=== PATIENT | male | born 1970 | race Caucasian/White ===

== ENCOUNTER 2020-01-29 12:55 | Emergency (ER) | payer SELFPAY ==
--- NOTE | 2020-01-29 13:18 | ER Document Report ---
ED Medical Screen (RME) - General Chief Complaint: Altered Mental Status Stated Complaint: WEAKNESS Time Seen by Provider: 01/29/20 13:07 Mode of Arrival: Ambulatory Information source: Patient Notes: 49-year-old male presented to ED for loss of memory intermittently x1 month altered mental status intermittently for over a month. States that he has had dark urine at times yellow eyes at times. Daughter states she saw him Saturday when he was talking okay but sometimes he talks on the phone he makes no sense. He is alert and oriented answering questions appropriate at this time. He also has generalized weakness. I have greeted and performed a rapid initial assessment of this patient. A comprehensive ED assessment and evaluation of the patient, analysis of test results and completion of medical decision making process will be conducted by an additional ED providers. - Related Data Allergies/Adverse Reactions: No Known Allergies Allergy (Verified 01/29/20 13:05) Past Medical History - Social History Frequency of alcohol use: Social Drug Abuse: Methamphetamine
--- NOTE | 2020-01-29 14:16 | RADIOLOGY REPORT (SQ) ---
EXAM DESCRIPTION: CT HEAD WITHOUT IMAGES COMPLETED DATE/TIME: 01/29/2020 2:03 pm REASON FOR STUDY: Memory loss altered mental status COMPARISON: None. TECHNIQUE: Axial images acquired through the brain without intravenous contrast. Images reviewed wi th bone, brain and subdural windows. Additional sagittal and coronal reconstructions were generated. Images stored on PACS. All CT scanners at this facility use dose modulation, iterative reconstruction, and/or weight based d osing when appropriate to reduce radiation dose to as low as reasonably achievable (ALARA). [facility]: Dose Right [facility]: CareDose [facility]: Dose Right [facility]: Teradose 4D [facility]: Prismatic RADIATION DOSE: CT Rad equipment meets quality standard of care and radiation dose reduction techniq ues were employed. CTDIvol: 53.2 mGy. DLP: 1017 mGy-cm. mGy. LIMITATIONS: None. FINDINGS: VENTRICLES: Normal size and contour. CEREBRUM: No masses. No hemorrhage. No midline shift. No evidence for acute infarction. Normal gra y/white matter differentiation. No areas of low density in the white matter. CEREBELLUM: No masses. No hemorrhage. No alteration of density. No evidence for acute infarction. EXTRAAXIAL SPACES: No fluid collections. No masses. ORBITS AND GLOBE: No intra- or extraconal masses. Normal contour of globe without masses. CALVARIUM: No fracture. PARANASAL SINUSES: No fluid or mucosal thickening. SOFT TISSUES: No mass or hematoma. OTHER: No other significant finding. IMPRESSION: NORMAL BRAIN CT WITHOUT CONTRAST. EVIDENCE OF ACUTE STROKE: NO. COMMENT: Quality ID # [id number]: Final reports with documentation of one or more dose reduction techniques (e.g., Automated exposure control, adjustment of the mA and/or kV according to patient size, use of iterative reconstruction technique) TECHNICAL DOCUMENTATION: JOB ID: [id number] 2010 [employer]- All Rights Reserved Reading location - IP/workstation name: [email or web address]
[2020-01-29 14:32] LABS: ABSOLUTE BASOPHILS # (AUTO) 0.1 10^3/uL (0.0-0.2); ABSOLUTE EOSINOPHILS # (AUTO) 0.5 10^3/uL (0.0-0.6); ABSOLUTE LYMPHOCYTES (AUTO) 2.5 10^3/uL (0.5-4.7); ABSOLUTE MONOCYTES (AUTO) 1.5 10^3/uL (0.1-1.4); ABSOLUTE NEUT (AUTO) 5.5 10^3/uL (1.7-8.2); EOSINOPHILS % (AUTO) 4.9 % (0-6); HEMATOCRIT 46.6 % (37.9-51.0); HEMOGLOBIN 16.4 g/dL (13.5-17.0); LYMPHOCYTES % (AUTO) 24.7 % (13-45); MEAN CORPUSCULAR HEMOGLOBIN 31.1 pg (27.0-33.4); MEAN CORPUSCULAR HGB CONC 35.3 g/dL (32.0-36.0); MEAN CORPUSCULAR VOLUME 88 fl (80-97); MONOCYTES % (AUTO) 14.6 % (3-13); PLATELET COUNT 280 10^3/uL (150-450); RED BLOOD COUNT 5.29 10^6/uL (4.35-5.55); RED CELL DISTRIBUTION WIDTH 17.5 % (11.5-14.0); SEGMENTED NEUTROPHILS % (AUTO) 54.8 % (42-78); TOTAL CELLS COUNTED % (AUTO) 100 %
[2020-01-29 14:36] LABS: INTERNATIONAL RATION (INR) 0.97; PROTHROMBIN TIME 13.1 SEC (11.4-15.4)
[2020-01-29 14:37] LABS: PARTIAL THROMBOPLASTIN TIME 34.6 SEC (23.5-35.8)
--- NOTE | 2020-01-29 14:49 | RADIOLOGY REPORT (SQ) ---
EXAM DESCRIPTION: CHEST SINGLE VIEW IMAGES COMPLETED DATE/TIME: 01/29/2020 2:13 pm REASON FOR STUDY: Short of breath COMPARISON: None. EXAM PARAMETERS: NUMBER OF VIEWS: One view. TECHNIQUE: Single frontal radiographic view of the chest acquired. RADIATION DOSE: NA LIMITATIONS: None. FINDINGS: LUNGS AND PLEURA: No opacities, masses or pneumothorax. No pleural effusion. MEDIASTINUM AND HILAR STRUCTURES: No masses. Contour normal. HEART AND VASCULAR STRUCTURES: Heart normal in size. Normal vasculature. BONES: No acute findings. HARDWARE: None in the chest. OTHER: No other significant finding. IMPRESSION: NO ACUTE RADIOGRAPHIC FINDING IN THE CHEST. TECHNICAL DOCUMENTATION: JOB ID: [id number] [place]-72 2010 [employer]- All Rights Reserved Reading location - IP/workstation name: [email or web address]
[2020-01-29 14:55] LABS: ALKALINE PHOSPHATASE 160 U/L (38-126); ANION GAP 7 (5-19); ASPARTATE AMINO TRANSFERASE 145 U/L (17-59); BILIRUBIN,DIRECT 1.3 mg/dL (0.0-0.4); BILIRUBIN,TOTAL 1.9 mg/dL (0.2-1.3); BLOOD UREA NITROGEN 10 mg/dL (7-20); CALCIUM 9.3 mg/dL (8.4-10.2); CARBON DIOXIDE 32 mmol/L (22-30); CHLORIDE 100 mmol/L (98-107); CREATINE KINASE 69 U/L (55-170); GLUCOSE 90 mg/dL (75-110); POTASSIUM 4.3 mmol/L (3.6-5.0); TOTAL PROTEIN 7.3 g/dL (6.3-8.2)
[2020-01-29 14:56] LABS: ACETAMINOPHEN < 10 ug/mL (10-30); ALCOHOL < 10 mg/dL (NONE DETECTED)
[2020-01-29 16:43] LABS: APPEARANCE,URINE SLIGHTLY-CLOUDY; BILIRUBIN,URINE SMALL (NEGATIVE); COLOR,URINE AMBER; GLUCOSE, URINE NEGATIVE (NEGATIVE); KETONES,URINE NEGATIVE (NEGATIVE); LEUKOCYTE ESTERASE,URINE NEGATIVE (NEGATIVE); NITRITE,URINE NEGATIVE (NEGATIVE); PROTEIN,URINE 100 mg/dL (NEGATIVE); URINE SPECIFIC GRAVITY 1.033
[2020-01-29 16:58] LABS: URINE BARBITURATES SCREEN NEGATIVE; URINE BENZODIAZEPINES SCREEN NEGATIVE; URINE COCAINE SCREEN NEGATIVE; URINE MARIJUANA (THC) SCREEN NEGATIVE; URINE METHADONE SCREEN NEGATIVE; URINE PHENCYCLIDINE SCREEN NEGATIVE
--- NOTE | 2020-01-29 18:22 | ER Document Report ---
ED General - General Chief Complaint: Altered Mental Status Stated Complaint: WEAKNESS Time Seen by Provider: 01/29/20 13:07 Primary Care Provider: DON LUIS [Primary Care Provider] - Follow up as needed Mode of Arrival: Ambulatory Notes: Patient is a 49-year-old white male with no known past medical history who presents to the emergency department with a chief complaint of wanting evaluat ed. He reports his daughter made him come. They report that recently he has been using methamphetamine because he turned 49 and started having lower energy levels. Patient states that he finds it hard to find the motivation to get up and go to work. He states that he does not have a primary care doctor and resulted to using methamphetamines for motivation. He states he does not sleep every night due to the methamphetamine use. He admits to smoking and injecting methamphetamines. States that he used to drink very heavily but only occasionally drinks alcohol now. Denies any other drug use. His daughter was concerned that more could be going on and decided to bring him for evaluation. Daughter also reports that from time to time when she talks to him he seems to not make much sense. She states that she is noticed in the past yellowing of the eyes. States that she looked the symptoms up on the Internet and was concerned. They deny any other pain, complaints or concerns at this time. - Related Data Allergies/Adverse Reactions: No Known Allergies Allergy (Verified 01/29/20 13:05) Past Medical History - General Information source: Patient - Social History Smoking Status: Current Every Day Smoker Frequency of alcohol use: Social Drug Abuse: Methamphetamine Family History: None Review of Systems - Review of Systems Constitutional: denies: Fever EENT: denies: Nose pain Cardiovascular: denies: Dyspnea Respiratory: denies: Short of breath Gastrointestinal: denies: Vomiting Genitourinary: denies: Frequency Male Genitourinary: denies: Testicular pain Musculoskeletal: denies: Muscle stiffness Skin: denies: Lesions Hematologic/Lymphatic: denies: Easy bruising Neurological/Psychological: Weakness Physical Exam - Vital signs Vitals: Temp Pulse Resp BP Pulse Ox 98.7 F 78 18 125/78 99 01/29/20 13:14 01/29/20 13:14 01/29/20 13:14 01/29/20 13:14 01/29/20 13:14 - General General appearance: Appears well, Alert In distress: None Notes: Pressured speech - HEENT Head: Normocephalic, Atraumatic Eyes: Normal Conjunctiva: No: Icteric, Injected Extraocular movements intact: Yes Eyelashes: Normal Pupils: PERRL Mouth/Lips: Normal Mucous membranes: Moist Pharynx: Normal Neck: Normal, Supple - Respiratory Respiratory status: No respiratory distress Chest status: Nontender Breath sounds: Normal Chest palpation: Normal - Cardiovascular Rhythm: Regular Heart sounds: Normal auscultation - Abdominal Inspection: Normal Distension: No distension Bowel sounds: Normal Tenderness: Nontender Organomegaly: No organomegaly Notes: No stigmata of liver disease. No palpable hepatomegaly. No right upper quadrant tenderness. - Back Back: No: CVA tenderness - Extremities General upper extremity: Normal inspection, Nontender, Normal color, Normal ROM, Normal temperature General lower extremity: Normal inspection, Nontender, Normal color, Normal ROM, Normal temperature, Normal weight bearing. No: Angelic's sign - Neurological Neuro grossly intact: Yes Cognition: Normal Orientation: AAOx4 - Psychological Associated symptoms: Restlessness - Skin Skin Temperature: Warm Skin Moisture: Dry Skin Color: Normal. negative: Jaundiced Course - Re-evaluation Re-evalutation: 01/29/20 18:23 Patient has a pretty benign exam. His work-up reveals obvious transaminitis and elevated bilirubin. His ammonia was in the normal range. He is positive for methamphetamines. He appears as if he is currently under the influence of methamphetamines with his movements and pressured speech. He has no evidence of jaundice or icterus. Benign abdominal exam. No fevers. He is not having any nausea or vomiting or diarrhea. The daughter does add that he is had some occasional dark urine. His urine today is tank in color with some bilirubin. Consistent with chronic liver disease from alcohol and drugs. Recommended the patient see a electronic warfare officer/nitric acid plant operator for further care and management. Advised financially they may not be able to do so and we recommended they start at the community care clinic for further outpatient laboratory testing and care. He will be referred for both. I discussed cessation of alcohol and drugs. We discussed dietary changes and exercise. Encouraged to push clear fluids. Advised they return here any ER immediately with any new, persistent or worsening symptoms. He and his daughter verbalized understood and agreed. 01/29/20 18:23 01/29/20 18:24 - Vital Signs Vital signs: Temp Pulse Resp BP Pulse Ox 98.7 F 78 18 125/78 99 01/29/20 13:14 01/29/20 17:22 01/29/20 17:22 01/29/20 17:22 01/29/20 17:22 - Laboratory Result Diagrams: 01/29/20 14:05 01/29/20 14:05 Laboratory results interpreted by me: 01/29/20 01/29/20 01/29/20 14:05 14:05 14:05 RDW 17.5 H [place] % (Auto) 14.6 H Absolute Monos (auto) 1.5 H Carbon Dioxide 32 H Total Bilirubin 1.9 H Direct Bilirubin 1.3 H AST 145 H ALT 271 H Alkaline Phosphatase 160 H Ammonia < 8.7 L Urine Protein Urine Bilirubin Urine Urobilinogen Acetaminophen < 10 L 01/29/20 16:32 RDW [place] % (Auto) Absolute Monos (auto) Carbon Dioxide Total Bilirubin Direct Bilirubin AST ALT Alkaline Phosphatase Ammonia Urine Protein 100 H Urine Bilirubin SMALL H Urine Urobilinogen 4.0 H Acetaminophen Discharge - Discharge Clinical Impression: Transaminitis, Abnormal liver function test, Elevated bilirubin Condition: Stable Disposition: HOME, SELF-CARE Instructions: Liver Function Abnormality ([facility]) Additional Instructions: Please follow-up with the electronic warfare officer as discussed and the outpatient community care clinic for further care management. Please return here or any ER immediately with any new, persistent or worsening symptoms. Please discontinue alcohol and methamphetamine. Please heed the dietary restrictions that we discussed. Referrals: DON ULIS [Primary Care Provider] - Follow up as needed [facility] [NO LOCAL MD] - Follow up as needed KALEE BOYER MD [EMERITUS] - Follow up as needed
[2020-01-29 18:36] VITALS: BP 120/70
--- NOTE | 2020-01-30 10:09 | EKG REPORT ---
SEVERITY:- OTHERWISE NORMAL ECG - SINUS RHYTHM LEFT AXIS DEVIATION : Confirmed by: Tonya Gandara MD 30-Jan-2020 10:09:17
== END 2020-01-29 18:36 | disposition home or self-care (01) ==
LOC: ER 12:55
DX: R74.01 Elevation of levels of liver transaminase levels (principal); R79.89 Other specified abnormal findings of blood chemistry; F15.10 Other stimulant abuse, uncomplicated; F17.200 Nicotine dependence, unspecified, uncomplicated; R41.82 Altered mental status, unspecified; R45.1 Restlessness and agitation; R39.89 Other symptoms and signs involving the genitourinary system
CPT/HCPCS: 36415; 70450; 71045; 80053; 80307; 81001; 82140; 82550; 83690; 85025; 85610; 85730; 93005; 93010; 99285